=== PATIENT | female | born 1985 | race Caucasian/White ===

== ENCOUNTER 2018-10-25 11:11 | Observation (INO) | payer OTHER ==
[~2018-10-25] VITALS: Ht 172 cm; Wt 117.0 kg
[2018-10-25 13:30] VITALS: BP 119/68
== END 2018-10-25 14:30 | disposition home or self-care (01) ==
LOC: 4S 11:11
PROVIDERS: ADMIT Obstetrics & Gynecology; ATTEND Obstetrics & Gynecology
DX: O24.419 Gestational diabetes mellitus in pregnancy, unspecified control (principal); Z3A.37 37 weeks gestation of pregnancy
CPT/HCPCS: 36415; 81002; 83036; G0378

== ENCOUNTER 2018-10-31 09:10 | Observation (INO) | payer OTHER ==
[~2018-10-31] VITALS: Ht 172.7 cm; Wt 117.0 kg
[2018-10-31 10:38] VITALS: BP 110/68
[2018-10-31] MEDS ORDERED: METF-445 PO (10:41)
[2018-10-31] MEDS ORDERED: [UNRECOGNIZED DRUG - REMARK] INJ (10:46)
[2018-10-31 11:49] LABS: GLUCOMETER DEV NAME(LOC) 4S.; GLUCOSE,POINT OF CARE 74 MG/DL (70-110)
[2018-10-31 13:15] LABS: GLUCOMETER DEV NAME(LOC) 4S.; GLUCOSE,POINT OF CARE 118 MG/DL (70-110)
== END 2018-10-31 14:10 | disposition home or self-care (01) ==
LOC: 4S 09:10
PROVIDERS: ADMIT Obstetrics & Gynecology; ATTEND Obstetrics & Gynecology
DX: O24.419 Gestational diabetes mellitus in pregnancy, unspecified control (principal); O62.9 Abnormality of forces of labor, unspecified; Z3A.38 38 weeks gestation of pregnancy
CPT/HCPCS: 36415; 81002; 82962; 83036; 83525; G0378

== ENCOUNTER 2018-10-31 14:28 | Inpatient (IN) | payer OTHER ==
[~2018-10-31] VITALS: Ht 170.2 cm; Wt 115.2 kg
[~2018-10-31 14:28] MED LIST: METF-445 PO; [UNRECOGNIZED DRUG - REMARK] INJ
[2018-11-03 20:37] VITALS: BP 117/77
[2018-11-03] MEDS ORDERED: OXYTOCIN 30 UNITS/LACT RINGERS 500 ML IV PRN (23:48)
[2018-11-03] MEDS ORDERED: OXYTOCIN 30 UNITS/LACT RINGERS 500 ML IV ONE (23:48)
[2018-11-03] MEDS ORDERED: RINGERS SOLUTION,LACTATED 1,000 ML IV PRN (23:48)
[2018-11-04] MEDS ORDERED: METOCLOPRAMIDE HCL 5 MG/ML 2 ML VIAL IVP PRN
[2018-11-04] MEDS ORDERED: METHYLERGONOVINE MALEATE 0.2 MG/ML VIAL IM PRN
[2018-11-04] MEDS ORDERED: CITRIC ACID/SODIUM CITRATE 30 ML SOLUTION UDCUP PO PRN
[2018-11-04 00:04] LABS: GLUCOMETER DEV NAME(LOC) 4S.; GLUCOSE,POINT OF CARE 95 MG/DL (70-110)
[2018-11-04 00:04] LABS: GLUCOMETER DEV NAME(LOC) 4S.; GLUCOSE,POINT OF CARE 88 MG/DL (70-110)
[2018-11-04 00:45] LABS: BASOPHILS % (AUTO) 0.2 % (0.0-2.0); EOSINOPHILS % (AUTO) 0.2 % (1.0-6.0); HEMATOCRIT 35.7 % (36-46); HEMOGLOBIN 11.8 g/dL (12.0-16.0); LYMPHOCYTES # (AUTO) 2.7 K/uL (1.0-4.8); LYMPHOCYTES % (AUTO) 25.4 % (22.0-44.0); MEAN CORPUSCULAR HEMOGLOBIN 28.5 pg (26.0-34.0); MEAN CORPUSCULAR HGB CONC 33.2 G/dL (31.0-37.0); MEAN CORPUSCULAR VOLUME 86 fL (80-100); MONOCYTES # (AUTO) 0.6 K/uL (0.1-1.0); NEUTROPHILS # (AUTO) 7.3 K/uL (1.8-7.7); NEUTROPHILS % (AUTO) 68.2 % (40.0-70.0); PLATELET COUNT (AUTO)-OB 213 K/uL (150-450); RED BLOOD CELL COUNT(AUTO) 4.16 MIL/uL (4.00-5.20); RED CELL DISTRIBUTION WIDTH 13.5 % (11.5-14.5)
[2018-11-04] MEDS ORDERED: PREN1TAB80 PO (00:58)
[2018-11-04] MEDS: RINGERS SOLUTION,LACTATED 1,000 ML IV SCH ×2 (01:10→04:31)
[2018-11-04] MEDS: FentaNYL CITRATE-PF 100 MCG/2 ML VIAL IVP PRN ×2 (02:59→03:04)
[2018-11-04 04:49] LABS: GLUCOMETER DEV NAME(LOC) 4S.; GLUCOSE,POINT OF CARE 85 MG/DL (70-110)
[2018-11-04 04:49] LABS: GLUCOMETER DEV NAME(LOC) 4S.; GLUCOSE,POINT OF CARE 90 MG/DL (70-110)
[2018-11-04 05:49] LABS: GLUCOMETER DEV NAME(LOC) 4S.; GLUCOSE,POINT OF CARE 81 MG/DL (70-110)
[2018-11-04] MEDS ORDERED: OXYGEN THERAPY IH SCH ×4 (08:00→20:00)
[2018-11-04 08:15] LABS: GLUCOMETER DEV NAME(LOC) 4S.; GLUCOSE,POINT OF CARE 72 MG/DL (70-110)
[2018-11-04] MEDS ORDERED: RINGERS SOLUTION,LACTATED 1,000 ML IV ONE (12:21)
[2018-11-04] MEDS ORDERED: DEXTROSE 5%-LACTATED RINGERS 1,000 ML IV ONE (12:30)
[2018-11-04] MEDS ORDERED: METOCLOPRAMIDE HCL 5 MG/ML 2 ML VIAL IVP ONE (12:30)
[2018-11-04] MEDS ORDERED: CITRIC ACID/SODIUM CITRATE 30 ML SOLUTION UDCUP PO ONE (12:30)
[2018-11-04] MEDS ORDERED: MORPHINE SULFATE/PF 1 MG/ML 10 ML AMP ONE (13:09)
[2018-11-04] MEDS ORDERED: FentaNYL CITRATE-PF 100 MCG/2 ML VIAL ONE (13:09)
[2018-11-04] MEDS ORDERED: BUPIVACAINE HCL/DEX-WATER/PF 0.75% 2 ML AMP ONE (13:10)
[2018-11-04] MEDS ORDERED: ACETAMINOPHEN 1000 MG/ISO-OSM 100 ML IV ONE (13:10)
[2018-11-04] MEDS ORDERED: MORPHINE SULFATE/PF 0.5 MG/ML 10 ML AMP ONE (13:11)
[2018-11-04 13:44] LABS: GLUCOMETER DEV NAME(LOC) 4S.; GLUCOSE,POINT OF CARE 71 MG/DL (70-110)
[2018-11-04 13:44] LABS: GLUCOMETER DEV NAME(LOC) 4S.; GLUCOSE,POINT OF CARE 76 MG/DL (70-110)
[2018-11-04] MEDS ORDERED: DiphenhydrAMINE HCL 50 MG/ML VIAL IVP PRN ×2 (14:00)
[2018-11-04] MEDS ORDERED: DEXAMETHASONE SOD PHOS 4 MG/ML VIAL IVP PRN (14:00)
[2018-11-04] MEDS ORDERED: MORPHINE SULFATE 10 MG/ML SYRINGE IVP PRN (14:00)
[2018-11-04] MEDS ORDERED: NALOXONE HCL 0.4 MG/ML VIAL IVP PRN (14:00)
[2018-11-04] MEDS ORDERED: NALBUPHINE HCL 10 MG/ML VIAL IVP PRN ×3 (14:00)
[2018-11-04] MEDS ORDERED: FentaNYL CITRATE-PF 100 MCG/2 ML VIAL IVP PRN (14:00)
[2018-11-04] MEDS ORDERED: ONDANSETRON HCL 4 MG/2 ML VIAL IVP PRN ×2 (14:00)
[2018-11-04] MEDS ORDERED: LANOLIN 7 GM OINTMENT TP PRN (14:30)
[2018-11-04] MEDS ORDERED: ACETAMINOPHEN/CODEINE 300-30 MG TABLET PO PRN ×2 (14:30)
[2018-11-04 14:54] LABS: GLUCOMETER DEV NAME(LOC) 4S.; GLUCOSE,POINT OF CARE 93 MG/DL (70-110)
[2018-11-04] MEDS ORDERED: DEXTROSE 50%-WATER 25 GM/50 ML SYRINGE IVP PRN (16:30)
[2018-11-04] MEDS: DEXTROSE 5%-0.45% SODIUM CHL 1,000 ML IV SCH (16:42)
[2018-11-04 16:49] LABS: GLUCOMETER DEV NAME(LOC) 4S.; GLUCOSE,POINT OF CARE 83 MG/DL (70-110)
[2018-11-04 20:24] LABS: GLUCOMETER DEV NAME(LOC) 4S.; GLUCOSE,POINT OF CARE 129 MG/DL (70-110)
[2018-11-04] MEDS: MAGNESIUM HYDROXIDE SUSPENSION 30 ML UDCUP PO SCH (20:58)
[2018-11-04] MEDS: INSULIN LISPRO 100 UNITS/ML SQ PRN (21:28)
[2018-11-04] MEDS: ACETAMINOPHEN 1000 MG/ISO-OSM 100 ML IV SCH (22:09)
[2018-11-05] MEDS ORDERED: DEXTROSE 5%-0.45% SODIUM CHL 1,000 ML IV ONE (00:37)
[2018-11-05] MEDS: DEXTROSE 5%-0.45% SODIUM CHL 1,000 ML IV SCH (00:41)
[2018-11-05 00:54] LABS: GLUCOMETER DEV NAME(LOC) 4S.; GLUCOSE,POINT OF CARE 159 MG/DL (70-110)
[2018-11-05] MEDS: INSULIN LISPRO 100 UNITS/ML SQ PRN ×2 (01:06→06:36)
[2018-11-05] MEDS ORDERED: PNEUMOCOCCAL VACCINE POLYVALENT 0.5 ML VIAL [PPSV23] IM ONE (03:45)
[2018-11-05] MEDS ORDERED: OXYTOCIN 10 UNITS/ML VIAL IM ONE (05:10)
[2018-11-05] MEDS ORDERED: EPHEDrine SULFATE 50 MG/ML VIAL IM ONE (05:10)
[2018-11-05] MEDS ORDERED: ONDANSETRON HCL 4 MG/2 ML VIAL IVP ONE (05:10)
[2018-11-05] MEDS ORDERED: 0.9% SODIUM CHLORIDE 10 ML VIAL IVP ONE (05:10)
[2018-11-05] MEDS ORDERED: CefoTEtan DISODIUM 1 GM/VIAL IVP ONE (05:10)
[2018-11-05] MEDS: ACETAMINOPHEN 1000 MG/ISO-OSM 100 ML IV SCH (05:44)
[2018-11-05 06:00] LABS: GLUCOMETER DEV NAME(LOC) 4S.; GLUCOSE,POINT OF CARE 131 MG/DL (70-110)
[2018-11-05] MEDS ORDERED: INSULIN LISPRO 100 UNITS/ML SQ ONE ×2 (07:54→18:35)
[2018-11-05] MEDS: IBUPROFEN 800 MG TABLET PO SCH ×3 (08:00→20:17)
[2018-11-05] MEDS ORDERED: RINGERS SOLUTION,LACTATED 1,000 ML IV SCH (08:00)
[2018-11-05] MEDS: MAGNESIUM HYDROXIDE SUSPENSION 30 ML UDCUP PO SCH ×2 (08:59→21:00)
[2018-11-05 11:50] LABS: GLUCOMETER DEV NAME(LOC) 4S.; GLUCOSE,POINT OF CARE 113 MG/DL (70-110)
[2018-11-05 18:15] LABS: GLUCOMETER DEV NAME(LOC) 4S.; GLUCOSE,POINT OF CARE 92 MG/DL (70-110)
[2018-11-05 21:24] LABS: GLUCOMETER DEV NAME(LOC) 4S.; GLUCOSE,POINT OF CARE 137 MG/DL (70-110)
[2018-11-06] MEDS: IBUPROFEN 800 MG TABLET PO SCH ×4 (02:13→20:51)
[2018-11-06 06:39] LABS: GLUCOMETER DEV NAME(LOC) 4S.; GLUCOSE,POINT OF CARE 85 MG/DL (70-110)
[2018-11-06] MEDS ORDERED: INSULIN LISPRO 100 UNITS/ML SQ ONE ×2 (08:15→17:00)
[2018-11-06] MEDS: MAGNESIUM HYDROXIDE SUSPENSION 30 ML UDCUP PO SCH ×2 (08:21→20:51)
[2018-11-06 11:34] LABS: GLUCOMETER DEV NAME(LOC) 4S.; GLUCOSE,POINT OF CARE 88 MG/DL (70-110)
[2018-11-06 16:34] LABS: GLUCOMETER DEV NAME(LOC) 4S.; GLUCOSE,POINT OF CARE 131 MG/DL (70-110)
[2018-11-06 21:16] LABS: GLUCOMETER DEV NAME(LOC) 4S.; GLUCOSE,POINT OF CARE 161 MG/DL (70-110)
[2018-11-07] MEDS: IBUPROFEN 800 MG TABLET PO SCH ×2 (02:00→09:06)
[2018-11-07 06:44] LABS: GLUCOMETER DEV NAME(LOC) 4S.; GLUCOSE,POINT OF CARE 96 MG/DL (70-110)
[2018-11-07] MEDS ORDERED: INSULIN LISPRO 100 UNITS/ML SQ ONE (06:45)
[2018-11-07] MEDS ORDERED: IBUP-2071 PO (11:11)
[2018-11-07] MEDS ORDERED: DSS100 PO (11:11)
[2018-11-07] MEDS ORDERED: FERR-89 PO (11:13)
[2018-11-07 11:40] LABS: GLUCOMETER DEV NAME(LOC) 4S.; GLUCOSE,POINT OF CARE 75 MG/DL (70-110)
== END 2018-11-07 12:40 | disposition home or self-care (01) | DRG 788 ==
LOC: OBSVTOIN 11-03 20:06 → 4S 11-03 20:06
PROVIDERS: ADMIT Obstetrics & Gynecology; ATTEND Obstetrics & Gynecology
PROC: 10D00Z1 Extraction of Products of Conception, Low, Open Approach (ICD-10-PCS; principal; 2018-11-04)
DX: O24.92 Unspecified diabetes mellitus in childbirth (principal); O62.2 Other uterine inertia; Z3A.38 38 weeks gestation of pregnancy; Z37.0 Single live birth
CPT/HCPCS: 86850; 86900; 86901; 87081; 90732; J0131; J1815; J2274; J2405; J2590; J2765; J3010; J3490; J7120